=== PATIENT | male | born 1995 | race Caucasian/White ===

== ENCOUNTER 2017-12-04 05:10 | Emergency (ER) | payer BC, OTHER ==
[2017-12-04] MEDS ORDERED: HYDROmorphone 1 MG/ML 1 ML SYRINGE IM STA (06:57)
--- NOTE | 2017-12-04 07:00 | ED ---
Upper Extremity HPI - General Chief Complaint: Extremity Injury, Upper Stated Complaint: Surgical Site Swelling Time Seen by Provider: 12/04/17 05:18 Source: patient Mode of arrival: ambulatory Limitations: no limitations - History of Present Illness Initial Comments: This patient is 22-year-old man who arrives as a transfer from [facility]. The patient had gone there tonight in relation to left hand pain and swelling. The patient had a trigger finger release performed by Dr. Alexander Olivera a week. The ER physician at [facility] was concerned this patient may be developing a postoperative infection. When I interview the patient here he has not had fever or chills. He is not having any drainage from these incision. There has been no warmth or redness of the hand. His main complaint is of stiffness and a little bit of swelling. MD Complaint: Injury to:: left, hand Onset/Timin -: days(s) Other Extremity Injury: Hand: Left Other Injuries: none Handedness: right Place: home Improves With: none Worsens With: movement of extremity - Related Data Previous Rx's Medication Instructions Recorded Ibuprofen [Motrin] 600 mg PO Q6HR PRN #20 tab 12/30/15 Hydrocodone/Acetaminophen [[place] 1 each PO Q6HR PRN #8 tab 12/04/17 5-325] Allergies Allergy/AdvReac Type Severity Reaction Status Date / Time No Known Allergies Allergy Verified 12/04/17 05:15 Review of Systems ROS Statement: Those systems with pertinent positive or pertinent negative responses have been documented in the HPI. ROS Other: All systems not noted in ROS Statement are negative. Constitutional: Denies: fever, chills Respiratory: Denies: cough, dyspnea Cardiovascular: Denies: chest pain, palpitations Skin: Denies: rash, lesions Neurological: Denies: weakness, numbness, paresthesias Past Medical History Past Medical History: No Reported History History of Any Multi-Drug Resistant Organisms: None Reported Past Surgical History: Orthopedic Surgery Past Psychological History: No Psychological Hx Reported Smoking Status: Never smoker Past Alcohol Use History: Rare Past Drug Use History: None Reported General Exam Limitations: no limitations General appearance: alert, in no apparent distress Respiratory exam: Present: normal lung sounds bilaterally. Absent: respiratory distress, wheezes, rales, rhonchi, stridor Cardiovascular Exam: Present: regular rate, normal rhythm, normal heart sounds. Absent: systolic murmur, diastolic murmur, rubs, gallop Extremities exam: Present: normal capillary refill. Absent: tenderness Left Elbow exam: Present: normal inspection, full ROM. Absent: tenderness Forearm Wrist exam: Present: normal inspection, full ROM. Absent: tenderness Hand Wrist exam: Present: tenderness, swelling, other (The patient's surgical incision is clean dry and intact. There is no abnormal erythema or warmth. The patient does have a mild amount of swelling to the involved finger, and there is stiffness as well, he does resist range of motion exam.). Absent: full ROM, abrasion, laceration, ecchymosis, deformity, crepitus, dislocation, erythema, amputation, nail avulsion, subungual hematoma Course Vital Signs 12/04/17 12/04/17 05:14 07:17 Temperature 97.6 F 98.0 F Pulse Rate 87 80 Respiratory 18 19 Rate Blood Pressure 131/79 123/87 O2 Sat by Pulse 100 99 Oximetry Medical Decision Making - Medical Decision Making Patient's 22-year-old man transferred here from [facility] with concern about postoperative infection. When I have examined the patient there does not appear to be infection. I discussed case with Dr. Schmitz, who is covering tonight for Dr. Olivera. I inquired as to whether one of the physicians from the group would become going through the hospital and could see the patient here. He informed me that there is not case this morning, and that they would prefer that the patient follow in clinic first thing. Dr. Schmitz that the patient's contact information and was speaking with one of the nurse practitioners for the group to arrange follow-up in the clinic. I did provide a dose of analgesia and the patient stated that the pain was minimal. I also provided and ulnar gutter splint to protect the digit, at the request of the orthopedists. Discussed with the patient that he needs to return here if there is any difficulty with the follow-up plan Disposition Clinical Impression: Post-operative pain Disposition: HOME SELF-CARE Condition: Fair Instructions: Arthralgia (ED) Prescriptions: Hydrocodone/Acetaminophen [[place] 5-325] 1 each PO Q6HR PRN #8 tab PRN Reason: Pain Is patient prescribed a controlled substance at d/c from ED?: No Referrals: Tod Murrieta DO [Primary Care Provider] - 1-2 days Alexander Olivera DO [Doctor of Osteopathic Medicine] - 1-2 days
[2017-12-04 07:19] VITALS: BP 123/87; PULSE 80; RESP 19; TEMP 98
== END 2017-12-04 07:17 | disposition home or self-care (01) ==
LOC: EC 05:10
DX: G89.18 Other acute postprocedural pain (principal); M79.642 Pain in left hand; Z98.890 Other specified postprocedural states
CPT/HCPCS: 99283; 29125; 96372; J1170; 29515

== ENCOUNTER → 2017-12-16 | Outpatient (CLI) | payer BC | END | disposition home or self-care (01) | LOC: LABWHC1 12:17 | PROVIDERS: ATTEND Orthopaedic Surgery Hand Surgery | DX: T81.4XXA Infection following a procedure, initial encounter (principal); L08.9 Local infection of the skin and subcutaneous tissue, unspecified; M79.641 Pain in right hand; Z98.890 Other specified postprocedural states | CPT/HCPCS: 87070; 87205 ==

== ENCOUNTER → 2019-06-09 | Outpatient (CLI) | payer BC ==
[2019-06-09 15:03] LABS: Basophils % (A) 0 %; Eosinophils # (A) 0.1 k/uL (0-0.7); Eosinophils % (A) 1 %; HCT 40.6 % (39.0-53.0); HGB 13.4 gm/dL (13.0-17.5); Lymphocytes # (A) 1.8 k/uL (1.0-4.8); Lymphocytes % (A) 17 %; MCH 28.8 pg (25.0-35.0); MCV 87.3 fL (80.0-100.0); Mean Platelet Volume 7.6; Monocytes # (A) 0.8 k/uL (0-1.0); Monocytes % (A) 8 %; Neutrophils % (A) 73 %; Platelet Count 204 k/uL (150-450); RBC 4.65 m/uL (4.30-5.90); RDW 12.7 % (11.5-15.5); WBC 10.9 k/uL (3.8-10.6)
[2019-06-09 15:59] LABS: Erythrocyte Sedimentation Rate 4 mm/hr (0-15)
== END ==
LOC: LABWHC1 14:11
PROVIDERS: ATTEND Orthopaedic Surgery
DX: M25.561 Pain in right knee (principal)
CPT/HCPCS: 36415; 85025; 85652; 86140; 87070; 87077; 87186; 87205

== ENCOUNTER 2019-06-10 11:20 | Inpatient (IN) | payer BC ==
[2019-06-10] MEDS ORDERED: ACETAMINOPHEN TAB 325 MG TAB PO PRN (16:50)
[2019-06-10] MEDS ORDERED: VANCOMYCIN IV PER PHARMACY 1 EACH MISC MISCELLANE PRN (16:53)
--- NOTE | 2019-06-10 17:29 | P.HPOR ---
History of Present Illness H&P Date: 06/10/19 Chief Complaint: Right knee septic prepatellar bursitis Patient is a 23-year-old male who was evaluated in the outpatient setting on 06/09/2019 with regards to right knee pain and swelling by Dr. Fam. It was determined at that time he had a prepatellar bursitis, aspiration was done and labs were sent. We did receive those lab results today which showed an elevated CRP of 3.9 and also the Gram stain showing gram-positive cocci. It was determined that this was a septic prepatellar bursitis and would need surgical intervention. Dr. Fam will be out of town over the next week, Dr. Blake will be taking over care of the patient at that time. With his physical exam findings and lab results, we decided to admit the patient to the hospital for IV antibiotics, evaluation by infectious disease and a planned surgical intervention for 06/11/2019. I was able to discuss the risk and benefits of the procedure with the patient today in the office with his mom, they are in good understanding would like to proceed. We will be proceeding with an incision and drainage with irrigation and debridement of the right septic prepatellar bursitis. Consent forms will be obtained prior to surgery. Anticipate the patient will be in the hospital through the weekend until cultures are determined and antibiotic choices are made. Review of Systems Constitutional: Reports as per HPI Past Medical History Past Medical History: No Reported History History of Any Multi-Drug Resistant Organisms: None Reported Past Surgical History: Orthopedic Surgery Smoking Status: Never smoker Medications and Allergies Home Medications Medication Instructions Recorded Confirmed Type Ibuprofen [Motrin] 600 mg PO Q6HR PRN #20 tab 12/30/15 Rx Hydrocodone/Acetaminophen [[place] 1 each PO Q6HR PRN #8 tab 12/04/17 Rx 5-325] Allergies Allergy/AdvReac Type Severity Reaction Status Date / Time No Known Allergies Allergy Verified 12/04/17 05:15 Physical Examination Right lower extremity: There are no obvious open lesions or sores present, there is a small scab noted over the prepatellar bursal region. There is obvious erythema surrounding the area. There is obvious fluctuance and tenderness with exam Patient's range of motion, he lacks about 10 of full extension, he flexes to about 115 before discomfort. No obvious effusion present around the knee. Logroll maneuver of the hip reproduces no pain. Plantar flexion, dorsiflexion, EHL, FHL are intact. His calf is soft, no tenderness with palpation. Sensory exam to light touch throughout the extremity is intact, dorsalis pedis pulses 2+. Assessment and Plan Assessment: Right knee septic prepatellar bursitis Plan: Our plan is to proceed with a incision and drainage with irrigation and debridement of the right prepatellar bursa on 06/11/2019. Infectious disease consult has been placed to tile mechanic helper with antibiotic choice He was started on IV vancomycin, we'll continue this at this time Nothing by mouth after midnight Further recommendations to follow
[2019-06-10] MEDS: HYDROcodone/APAP 5-325MG 1 EACH TAB PO PRN (17:51)
[2019-06-10] MEDS ORDERED: VANCOMYCIN 1,250 MG in SODIUM CHLORIDE 0.9% 250 ML IVPB ONE (18:00)
[2019-06-10 18:15] LABS: Basophils % (A) 0 %; Eosinophils # (A) 0.1 k/uL (0-0.7); Eosinophils % (A) 1 %; HCT 38.1 % (39.0-53.0); HGB 12.7 gm/dL (13.0-17.5); Lymphocytes # (A) 1.9 k/uL (1.0-4.8); Lymphocytes % (A) 19 %; MCHC 33.2 g/dL (31.0-37.0); MCV 87.2 fL (80.0-100.0); Mean Platelet Volume 7.9; Monocytes # (A) 0.8 k/uL (0-1.0); Monocytes % (A) 8 %; Neutrophils % (A) 70 %; Platelet Count 172 k/uL (150-450); RBC 4.37 m/uL (4.30-5.90); RDW 12.6 % (11.5-15.5)
[2019-06-10 18:31] LABS: ALT 19 U/L (4-49); AST 30 U/L (17-59); African American GFR (CKD) >90 (>60 ml/min/1.73 sqM); Albumin 4.2 g/dL (3.5-5.0); Alkaline Phosphatase 48 U/L (38-126); Anion Gap 7 mmol/L; Blood Urea Nitrogen 13 mg/dL (9-20); Calcium 8.9 mg/dL (8.4-10.2); Carbon Dioxide 30 mmol/L (22-30); Chloride 100 mmol/L (98-107); Glucose 87 mg/dL (74-99); Non-African American GFR(CKD) >90 (>60 ml/min/1.73 sqM); Sodium 137 mmol/L (137-145); Total Bilirubin 0.6 mg/dL (0.2-1.3); Total Protein 6.8 g/dL (6.3-8.2)
[2019-06-10] MEDS: HYDROmorphone 0.5 MG/0.5 ML SYRINGE IVP PRN (20:19)
[2019-06-11] MEDS: HYDROcodone/APAP 5-325MG 1 EACH TAB PO PRN (00:45)
[2019-06-11] MEDS: VANCOMYCIN 1,500 MG in SODIUM CHLORIDE 0.9% 250 ML IVPB SCH ×3 (02:18→14:41)
[2019-06-11] MEDS: HYDROmorphone 0.5 MG/0.5 ML SYRINGE IVP PRN ×3 (02:19→14:41)
[2019-06-11] MEDS ORDERED: IV FLUID CONTINUATION 1,000 ML IV ONE (11:00)
[2019-06-11] MEDS ORDERED: fentaNYL (PF) 50 MCG/ML 2 ML AMP ONE (11:26)
[2019-06-11] MEDS ORDERED: HYDROmorphone (PF) 1 MG/ML ONE (11:26)
[2019-06-11] MEDS ORDERED: MIDAZOLAM 2 MG/2 ML VIAL ONE (11:26)
[2019-06-11] MEDS ORDERED: PROPOFOL 10 MG/ML 20 ML VIAL IV ONE (11:26)
[2019-06-11] MEDS ORDERED: LACTATED RINGERS 1,000 ML IV ONE (12:02)
[2019-06-11] MEDS ORDERED: BUPIVACAINE (PF) 0.5% 30 ML VIAL SQ ONE ×2 (12:12)
--- NOTE | 2019-06-11 12:25 | P.OP ---
Date of Procedure: 06/11/19 Preoperative Diagnosis: Right knee septic prepatellar bursitis Postoperative Diagnosis: Same Procedure(s) Performed: Right knee bursectomy with irrigation Anesthesia: MELISSA local Surgeon: Boni Blake Fitness Sales Consultant #1: Milton Silva Estimated Blood Loss (ml): 20 Pathology: none sent Condition: stable Disposition: PACU Indications for Procedure: 23-year-old patient seen with a right knee septic prepatellar bursitis. Recommend incision with bursectomy and irrigation. Patient was agreeable and consent was obtained. Operative Findings: See description of procedure Description of Procedure: Patient was taken to the operative suite. Patient underwent a generalized site by the primary a seizure. A well-padded tourniquet placed proximal right thigh. Right lower extremity was prepped and draped in the normal sterile fashion. The extremity was elevated and tourniquet insufflated to 300. A standard anterior incision made sharply through the skin. I dissected down to the bursa. It was significantly irritated and inflamed. A small sakshi was made in the bursa and cultures were obtained. With the assistance of a sakshi camacho and maria eugenia carefully performed a bursectomy removing the entire infected swollen bursa. We explored the wound and noted no residual abnormal looking tissue. We now irrigated the wound out copiously. I now repaired the subcutaneous soft tissues with 2-0 Vicryl in layers taking it down to the anterior aspect of the knee. I repaired the skin with nylon suture. We now infiltrated the subcu soft tissues with half percent plain Marcaine. Sterile dressings were applied. The tourniquet was released with immediate capillary refill noted. We applied sterile webril and Lasha bandage. The patient was awakened, transferred to a bed in the recovery stable condition. Sakshi ONEILL assisted procedure.
[2019-06-11] MEDS: HYDROmorphone 1 MG/ML 1 ML SYRINGE IVP ONE ×2 (12:50→12:55)
[2019-06-11] MEDS: HYDROcodone/APAP 7.5-325MG 1 EACH TAB PO PRN ×3 (13:35→23:29)
[2019-06-11] MEDS ORDERED: IBUPROFEN 800 MG TAB PO PRN (16:38)
[2019-06-11] MEDS: HYDROmorphone 1 MG/ML 1 ML SYRINGE IVP PRN (21:38)
[2019-06-11] MEDS ORDERED: VANCOMYCIN 1,500 MG in SODIUM CHLORIDE 0.9% 250 ML IVPB SCH (23:00)
--- NOTE | 2019-06-12 00:23 | P.CONS ---
History of Present Illness - Reason for Consult Consult date: 06/11/19 right knee septic prepatellar bursitis Requesting physician: Boni Blake - Chief Complaint right knee pain and swelling x few days - History of Present Illness Patient is a 23-year-old male who presented to orthopedic in the outpatient setting on June 08 with a chief complaints of right knee pain and swelling that apparently has been going on for a few days before he presented to the hospital patient had denies any history of trauma to the right knee patient was evaluated in the outpatient setting and he did have a aspirate of the right knee performed which did grew MSSA patient subsequently has been admitted directly to the hospital for right knee bursectomy with irrigation with a diagnosis of right knee septic prepatellar bursitis which has been performed this morning patient was started on vancomycin infectious disease was consulted for further recommendation about antibiotic therapy patient describing pain to the right knee mostly onto the anterior knee area with throbbing almost 10 out of 10 when severe with associated swelling or redness no open wound or any drainage pain is currently controlled with the pain medication he is on for surgery Review of Systems Positive point has been mentioned HPI rest of the systems are negative Past Medical History Past Medical History: No Reported History History of Any Multi-Drug Resistant Organisms: None Reported Past Surgical History: Orthopedic Surgery Smoking Status: Never smoker - Past Family History Father History Unknown: Yes Family Medical History: No Reported History Medications and Allergies Home Medications Medication Instructions Recorded Confirmed Type Ibuprofen [Motrin] 600 mg PO Q6HR PRN #20 tab 12/30/15 Rx Hydrocodone/Acetaminophen [[place] 1 each PO Q6HR PRN #8 tab 12/04/17 Rx 5-325] Allergies Allergy/AdvReac Type Severity Reaction Status Date / Time No Known Allergies Allergy Verified 12/04/17 05:15 Physical Exam Vitals: Vital Signs Temp Pulse Pulse Resp BP BP Pulse Ox 06/11/19 13:04 87 16 127/83 100 06/11/19 12:49 81 16 112/57 100 06/11/19 12:34 68 16 113/58 99 06/11/19 12:19 97.7 F 80 16 118/62 98 06/11/19 07:54 98.1 F 94 16 126/60 98 06/11/19 00:41 98.7 F 77 15 109/51 98 03/13/20 19:00 99.0 F 73 16 112/61 100 06/10/19 17:30 99.3 F 80 17 116/73 99 Intake and Output 06/11/19 06/11/19 06/11/19 06:59 14:59 22:59 Intake Total 0 600 Output Total 20 Balance 0 580 Intake: IV 600 Oral 0 Output: Estimated Blood Loss 20 Other: # Voids 1 GENERAL DESCRIPTION: Young male lying in bed, no distress. No tachypnea or accessory muscle of respiration use. HEENT: Shows Pallor , no scleral icterus. Oral mucous membrane is dry. No phary ngeal erythema or thrush NECK: Trachea central, no thyromegaly. LUNGS: Unlabored breathing. Clear to auscultation anteriorly. No wheeze or crackle. HEART: S1, S2, regular rate and rhythm. No loud murmur ABDOMEN: Soft, no tenderness , guarding or rigidity, no organomegaly EXTREMITIES: Right knee is currently dressed up no obvious drainage on the dressing sKIN: No rash, no masses palpable. NEUROLOGICAL: The patient is awake, alert, oriented x3, mood and affect normal. Results CBC & Chem 7: 06/10/19 18:01 06/10/19 18:01 Labs: Abnormal Lab Results - Last 24 Hours (Table) 06/10/19 Range/Units 18:01 Hgb 12.7 L (13.0-17.5) gm/dL Hct 38.1 L (39.0-53.0) % Assessment and Plan Assessment: patient with right knee septic prepatellar bursitis in this patient outpatient culture has been positive for MSSA who has been admitted to the hospital and is status post right knee bursectomy and I&D with deep cultures (1) Septic prepatellar bursitis of right knee Current Visit: Yes Status: Acute Code(s): M71.161 - OTHER INFECTIVE BURSITIS, RIGHT KNEE SNOMED Code(s): 75447491 (2) MSSA (methicillin susceptible Staphylococcus aureus) Current Visit: Yes Status: Acute Code(s): A49.01 - METHICILLIN SUSCEP STAPH INFECTION, UNSP SITE SNOMED Code(s): 739827503 Plan: 1-discontinue the vancomycin 2-start with cefazolin 2 g every 8 hour 3-discharge antibiotic on the basis of clinical response and repeat cultures We will follow on clinical condition and cultures to further adjust medication if needed Thank you for this consultation will follow this patient along with you Time with Patient: Greater than 30
[2019-06-12] MEDS: HYDROmorphone 1 MG/ML 1 ML SYRINGE IVP PRN ×7 (01:33→22:43)
[2019-06-12] MEDS: HYDROcodone/APAP 7.5-325MG 1 EACH TAB PO PRN ×3 (05:52→18:04)
[2019-06-12] MEDS ORDERED: VANCOMYCIN TROUGH DUE 1 EACH MISC MISCELLANE ONE (06:00)
[2019-06-12 06:56] LABS: African American GFR (CKD) >90 (>60 ml/min/1.73 sqM); Non-African American GFR(CKD) >90 (>60 ml/min/1.73 sqM)
--- NOTE | 2019-06-12 15:00 | P.PN ---
Subjective Progress Note Date: 06/12/19 Principal diagnosis: status post incision and drainage with irrigation and debridement infected right prepatellar bursitis Patient was evaluated today at bedside, resting comfortably. He has had some increase in pain since the surgery yesterday. He has not been out of bed at t his time. Denies any fevers or chills at this time. Objective - Vital Signs Vital signs: Vital Signs Temp 98.3 F 06/12/19 07:37 Pulse 80 06/12/19 07:37 Resp 16 06/12/19 07:37 BP 103/55 06/12/19 07:37 Pulse Ox 99 06/12/19 07:37 Intake & Output 06/11/19 06/12/19 06/12/19 18:59 06:59 18:59 Intake Total 600 1730 50 Output Total 20 800 1000 Balance 580 930 -950 Intake: IV 600 Intake, IV Titration 50 50 Amount ceFAZolin 2 gm In Sodium 50 50 Chloride 0.9% 50 ml @ 100 mls/hr IVPB Q8HR [facility] Rx# :[id number] Oral 1680 Output: Urine 800 1000 Estimated Blood Loss 20 Other: Voiding Method Urinal # Voids 1 1 - Exam Right lower extremity: Postoperative bandages removed, stitches are in good position condition. There is no obvious drainage. The erythema and swelling is improved. Calf is soft, no tenderness with palpation. Distal neurovascular exam is intact. - Labs CBC & Chem 7: 06/10/19 18:01 06/12/19 05:46 Labs: Microbiology - Last 24 Hours (Table) 06/11/19 12:01 Gram Stain - Preliminary Knee - Right Wound Culture - Preliminary 06/11/19 12:01 Anaerobic Culture - Preliminary Knee - Right Assessment and Plan Assessment: Status post incision and drainage with irrigation and debridement right infected prepatellar bursitis Plan: Pain control, try to wean off IV pain medication, orals as needed Weight-bear as tolerated, advised patient to avoid deep flexion or any kneeling Daily dressing changes/ice and elevate Await final culture/sensitivity Infectious disease recommendations Plan for discharge in the next day or 2 Time with Patient: Less than 30
[2019-06-12] MEDS ORDERED: ONDANSETRON 4 MG/2 ML VIAL IVP PRN (17:36)
[2019-06-12 19:45] VITALS: RESP 16
[2019-06-13] MEDS: HYDROcodone/APAP 7.5-325MG 1 EACH TAB PO PRN ×2 (02:09→08:57)
[2019-06-13 08:23] LABS: Basophils % (A) 0 %; Eosinophils # (A) 0.1 k/uL (0-0.7); Eosinophils % (A) 1 %; HCT 42.9 % (39.0-53.0); HGB 13.9 gm/dL (13.0-17.5); Lymphocytes # (A) 1.3 k/uL (1.0-4.8); Lymphocytes % (A) 19 %; MCH 28.6 pg (25.0-35.0); MCHC 32.4 g/dL (31.0-37.0); MCV 88.3 fL (80.0-100.0); Mean Platelet Volume 8.2; Monocytes # (A) 0.5 k/uL (0-1.0); Monocytes % (A) 8 %; Neutrophils # (A) 4.7 k/uL (1.3-7.7); Neutrophils % (A) 70 %; Platelet Count 277 k/uL (150-450); RBC 4.86 m/uL (4.30-5.90); RDW 12.6 % (11.5-15.5); WBC 6.8 k/uL (3.8-10.6)
[2019-06-13 08:44] LABS: African American GFR (CKD) >90 (>60 ml/min/1.73 sqM); Anion Gap 6 mmol/L; Blood Urea Nitrogen 8 mg/dL (9-20); Calcium 9.4 mg/dL (8.4-10.2); Carbon Dioxide 31 mmol/L (22-30); Chloride 102 mmol/L (98-107); Glucose 89 mg/dL (74-99); Non-African American GFR(CKD) >90 (>60 ml/min/1.73 sqM); Sodium 139 mmol/L (137-145)
[2019-06-13 08:59] LABS: C Reactive Protein 48.9 mg/L (<10.0)
--- NOTE | 2019-06-13 09:19 | PN ---
PROGRESS NOTE DATE OF SERVICE: 06/12/2019 REASON FOR FOLLOWUP: Right knee septic prepatellar bursitis. INTERVAL HISTORY: The patient is currently afebrile, has been breathing comfortably. Patient denies having any chest pain or any cough: No nausea, no vomiting, no abdominal pain, or any worsening pain to the right knee area. PHYSICAL EXAMINATION: Blood pressure 113/51 with a pulse of 80, temperature 98.6, he is 93% we room air. General description is a young male, lying in bed in no distress. RESPIRATORY SYSTEM: Unlabored breathing, clear to auscultation anteriorly. HEART: S1, S2, regular rate and rhythm. ABDOMEN: Soft, no tenderness. The right knee is currently dressed. No obvious drainage on the dressing. LABS: Wound cultures are currently pending. DIAGNOSTIC IMPRESSION AND PLAN: Patient with right knee septic prepatellar bursitis, outpatient culture has been positive for MSSA. The patient is post I and D. The patient is currently covered with Cefazolin; to continue while waiting for the OR culture to finalize. Will check with transplant case manager if the patient has outpatient IV antibiotic coverage which in case antibiotic will be switched over to Rocephin 2 g daily for 2 weeks with close outpatient follow-up. MMODL / IJN: [id number] / MTDD
[2019-06-13 10:14] VITALS: BP 125/69; PULSE 68; TEMP 98.6
[2019-06-13 12:15] LABS: Erythrocyte Sedimentation Rate 19 mm/hr (0-15)
--- NOTE | 2019-06-13 12:25 | P.PN ---
Subjective Progress Note Date: 06/13/19 Principal diagnosis: status post incision and drainage with irrigation and debridement infected right prepatellar bursitis Patient was evaluated today at bedside, resting comfortably. Pain is much better today. He has been ambulating with no difficulty. Objective - Vital Signs Vital signs: Vital Signs Temp 98.6 F 06/13/19 07:36 Pulse 68 06/13/19 07:36 Resp 16 06/13/19 07:36 BP 125/69 06/13/19 07:36 Pulse Ox 100 06/13/19 07:36 Intake & Output 06/12/19 06/13/19 06/13/19 18:59 06:59 18:59 Intake Total 50 50 Output Total 1000 Balance -950 50 Intake: Intake, IV Titration 50 50 Amount ceFAZolin 2 gm In Sodium 50 50 Chloride 0.9% 50 ml @ 100 mls/hr IVPB Q8HR [facility] Rx# :[id number] Output: Urine 1000 Other: Voiding Method Urinal # Voids 1 - Exam Right lower extremity: Incision is clean, dry and intact. There is no obvious drainage. The erythema and swelling is improved. Calf is soft, no tenderness with palpation. Distal neurovascular exam is intact. - Labs CBC & Chem 7: 06/13/19 07:14 06/13/19 07:14 Labs: Abnormal Lab Results - Last 24 Hours (Table) 06/13/19 06/13/19 Range/Units 07:14 07:14 ESR 19 H (0-15) mm/hr Carbon Dioxide 31 H (22-30) mmol/L BUN 8 L (9-20) mg/dL C-Reactive Protein 48.9 H (<10.0) mg/L Assessment and Plan Assessment: Status post incision and drainage with irrigation and debridement right infected prepatellar bursitis Plan: Pain control, oral medications needed Weight-bear as tolerated, advised patient to avoid deep flexion or any kneeling Daily dressing changes/ice and elevate Possible discharged home today Time with Patient: Less than 30
--- NOTE | 2019-06-13 12:53 | P.DS ---
Providers Date of admission: 06/11/19 12:22 Expected date of discharge: 06/13/19 Attending physician: Boni Blake Consults: 06/10/19 16:49 Consult Physician Routine Consulting Provider: Yesenia Paul Consult Reason/Comments: Right knee septic prepatellar bursitis Do you want consulting provider notified?: Yes Primary care physician: Stated None Hospital Course: Date of admission: 06/10/2019 Date of discharge: 06/13/2019 Admission diagnosis: Infected right prepatellar bursitis Discharge diagnosis: Status post incision and drainage with irrigation and debridement infected right prepatellar bursitis Attending physician: Dr. Blake Surgical procedures: Incision and drainage with irrigation and debridement infected right prepatellar bursitis Brief history: Patient is a 23-year-old male who was initially evaluated in the outpatient setting by Dr. Fam on 06/09/2019 with a likely infected right prepatellar bursitis. Initial lab tests were done, demonstrated a infection. Patient was admitted to the hospital on 06/10/2019 with plan for surgical intervention on 06/11/2019. Hospital course: Details of patient's surgery can be found in operative report. Patient tolerated the procedure well and was subsequently transported to orthopedic floor. Patient's orthopeidc and medical care was provided daily. Patient had daily laboratory tests performed for evaluation of overall blood counts. Patient was noted to have a relatively uneventful postoperative course. Patient reported satisfactory pain control with oral pain medications by postoperative day 0. Patient showed satisfactory progress with physical therapy. Patient moved steadily through the program and had no difficulty meeting the goals by postoperative day 2. Given patient's otherwise satisfactory course and having met physical therapy goals, plan is to discharge patient home on postoperative day 2. Discharge condition/disposition: Patient will be discharged home in stable condition. Discharge medications: Instructions are given on resumption of patient's normal daily medications per primary care recommendation, in addition patient will be prescribed [place] 5 mg/325 mg, Cefazolin Discharge instructions: 1. Wound care and infection precautions, keep incision dry and covered while showering, no lotions, creams, moisturizers. No soaking, tubs, pools, hottubs. Do not scrub over the incision. 2. Weight-bear as tolerated with walker / cane until follow-up. 3. Ice and elevate when necessary. Do not exceed 20 minutes per hour with ice pack. 4. Follow up in office at 2 weeks postop with Spenser Silva PA-C 5. Follow up with your primary care doctor 7-10 days after discharge. 6. Contact [facility] with any questions, . Procedures: Incision and drainage with irrigation and debridement infected right prepatellar bursitis Patient Condition at Discharge: Good Plan - Discharge Summary Discharge Rx Participant: No New Discharge Prescriptions: New Hydrocodone/Acetaminophen [[place] 5-325] 1 each PO Q6HR PRN #20 tab PRN Reason: Pain No Action Ibuprofen [Motrin] 600 mg PO Q6HR PRN #20 tab PRN Reason: Pain Hydrocodone/Acetaminophen [[place] 5-325] 1 each PO Q6HR PRN #8 tab PRN Reason: Pain Discharge Medication List Ibuprofen [Motrin] 600 mg PO Q6HR PRN #20 tab 12/30/15 [Rx] Hydrocodone/Acetaminophen [[place] 5-325] 1 each PO Q6HR PRN #8 tab 12/04/17 [Rx] Hydrocodone/Acetaminophen [[place] 5-325] 1 each PO Q6HR PRN #20 tab 06/13/19 [Rx] Follow up Appointment(s)/Referral(s): [facility]Infusion [NON-STAFF] - Milton Silva, PAC [PHYSICIAN RECORD KEEPER] - 2 Weeks Activity/Diet/Wound Care/Special Instructions: Orthopedic discharge instructions: 1. Daily dressing changes 2. Weight-bear as tolerated, avoid excess flexion and kneeling on the knee 3. Keep incision dry and covered while showering 4. Plan for follow-up at [facility] in 2 weeks Discharge Disposition: HOME SELF-CARE
--- NOTE | 2019-06-13 16:04 | P.PN ---
Progress Note - Text Progress Note Date: 06/13/19 REASON FOR FOLLOWUP: Right knee septic prepatellar bursitis MSSA INTERVAL HISTORY: The patient remains to be afebrile afebrile, has been breathing comfortably. Patient denies having any chest pain or any cough: No nausea, no vomiting, no abdominal pain, or any worsening pain to the right knee area. PHYSICAL EXAMINATION: Blood pressure 120/50 with a pulse of 70, temperature 98.6, he is 93% we room air. General description is a young male, lying in bed in no distress. RESPIRATORY SYSTEM: Unlabored breathing, clear to auscultation anteriorly. HEART: S1, S2, regular rate and rhythm. ABDOMEN: Soft, no tenderness. The right knee incision is intact did have some redness no foul-smelling kady inage. LABS: Wound cultures presumptive staph aureus. Was cultured for MSSA DIAGNOSTIC IMPRESSION AND PLAN: Patient with right knee septic prepatellar bursitis, outpatient culture has been positive for MSSA. The patient is post I and D. patient antibiotics will be Switched over to Rocephin 2 g daily for 2 weeks midline and close outpatient follow-up
== END 2019-06-13 15:53 | disposition home or self-care (01) | DRG 502 ==
LOC: EDSTATUS 11:20 → 4SSUR 16:53 → EDSTATUS 06-11 11:20 → OBSVTOIN 06-11 12:22
PROVIDERS: ADMIT Orthopaedic Surgery; ATTEND Orthopaedic Surgery
PROC: 0MBN0ZZ Excision of Right Knee Bursa and Ligament, Open Approach (ICD-10-PCS; principal; 2019-06-11 11:20)
DX: M71.161 Other infective bursitis, right knee (principal); B95.61 Methicillin susceptible Staphylococcus aureus infection as the cause of diseases classified elsewhere
CPT/HCPCS: 36410; 36415; 76937; 80048; 80053; 80202; 82565; 85025; 85652; 86140; 87070; 87075; 87077; 87186; 87205

== ENCOUNTER → 2020-04-16 | Outpatient (CLI) | payer BC | END | disposition home or self-care (01) | LOC: RADMRIMAIN 20:02 | PROVIDERS: ATTEND Orthopaedic Surgery | DX: Z53.9 Procedure and treatment not carried out, unspecified reason (principal) ==

== ENCOUNTER → 2020-04-18 | Outpatient (CLI) | payer BC ==
--- NOTE | 2020-04-19 02:12 | MR ---
EXAMINATION TYPE: MR knee RT wo con DATE OF EXAM: 04/18/2020 COMPARISON: 04/02/2012 HISTORY: Right knee pain due to basketball injury in 2011 Multiplanar multiecho imaging of the right knee was performed without contrast. The anterior and posterior cruciate ligaments are intact. Patella is intact. The collateral ligaments are intact. There is some degenerative thinning of the medial meniscus. The lateral meniscus appears normal for age. There is focal abnormal 1.5 cm area of increased signal in the anterior aspect of the medial tibial c ondyle. IMPRESSION: Edema in the anterior aspect of the medial tibial condyle consistent with a bone bruise. This appears new compared to old exam. Thinning of the medial meniscus consistent with degenerative phenomenon or surgery that is similar to old exam.
== END | disposition home or self-care (01) ==
LOC: RADMRIMAIN 18:38
PROVIDERS: ATTEND Orthopaedic Surgery
DX: M25.861 Other specified joint disorders, right knee (principal)

== ENCOUNTER → 2022-03-27 | Outpatient (CLI) | payer BC ==
[2022-03-27 22:33] LABS: Basophils # (A) 0.04 X 10*3/uL (0.00-0.10); Basophils % (A) 0.5 %; Eosinophils # (A) 0.22 X 10*3/uL (0.04-0.35); Eosinophils % (A) 2.7 %; HCT 41.1 % (39.6-50.0); HGB 13.5 g/dL (13.0-17.0); Immature Grans, Automated 0.2 %; Lymphocytes # (A) 2.56 X 10*3/uL (0.90-5.00); Lymphocytes % (A) 30.9 %; MCH 29.3 pg (27.0-32.0); MCHC 32.8 g/dL (32.0-37.0); MCV 89.2 fL (80.0-97.0); Monocytes # (A) 0.78 X 10*3/uL (0.20-1.00); Monocytes % (A) 9.4 %; NRBC Per 100 WBC 0 /100 WBCS (0.0-0.0); Neutrophils # (A) 4.67 X 10*3/uL (1.80-7.70); Neutrophils % (A) 56.3 %; Platelet Count 232 X 10*3/uL (140-440); RBC 4.61 X 10*6/uL (4.40-5.60); RDW 13.4 % (11.5-14.5); WBC 8.29 X 10*3/uL (4.50-10.00)
[2022-03-28 00:09] LABS: African American GFR (CKD) 136.1 (60.0-200.0); Anion Gap 6.6 mmol/L (10.00-18.00); BUN/Creat Ratio 14.44 Ratio (12.00-20.00); Calcium 9.6 mg/dL (8.7-10.3); Carbon Dioxide 29.4 mmol/L (20.0-27.5); Non-African American GFR(CKD) 117.5 (60.0-200.0); Potassium 4.9 mmol/L (3.5-5.5)
== END | disposition home or self-care (01) ==
LOC: LABPAT 15:39
PROVIDERS: ATTEND Orthopaedic Surgery
DX: Z01.812 Encounter for preprocedural laboratory examination (principal); M23.91 Unspecified internal derangement of right knee
CPT/HCPCS: 80048; 85025

== ENCOUNTER 2022-04-04 07:22 | Day surgery (SDC) | payer BC ==
[2022-04-01 13:21] VITALS: BMI 20.7
--- NOTE | 2022-04-03 11:13 | P.HPOR ---
History of Present Illness H&P Date: 04/03/22 Chief Complaint: Right knee pain The patient's a 26-year-old male who presents with progressive right knee pain for the past year that is worsening. He notes buckling and instability. He has daily pain. He tried medications in addition to an injection with partial temporary relief. He notes he is limited because of pain. Review of Systems As per HPI Past Medical History Past Medical History: No Reported History History of Any Multi-Drug Resistant Organisms: None Reported Past Surgical History: Orthopedic Surgery Additional Past Surgical History / Comment(s): Arthroscopic right knee surgery X3. Past Anesthesia/Blood Transfusion Reactions: No Reported Reaction Past Psychological History: No Psychological Hx Reported Smoking Status: Never smoker Past Alcohol Use History: Rare Past Drug Use History: Marijuana Additional Drug Use History / Comment(s): Hx daily Marijuana use, none in the last month. - Past Family History Father History Unknown: Yes Family Medical History: No Reported History Medications and Allergies Home Medications Medication Instructions Recorded Confirmed Type Celebrex (Unknown Dose) 1 tab PO BID PRN 04/01/22 04/01/22 History Allergies Allergy/AdvReac Type Severity Reaction Status Date / Time No Known Allergies Allergy Verified 04/01/22 13:13 Physical Examination - Knee right Effusion grade: trace Pain: with flexion ROM: extension: -5 degrees ROM: flexion: 140 degrees Strength: extension: 5/5 Strength: flexion: 5/5 Meniscal tests: medial meniscal tests: positive, medial joint line pain: positive Results The patient is a well-developed well-nourished male a proximally 6 foot 4, 165 pounds of mesomorphic habits. HEENT exam is nonfocal, neck is supple. He has painless passive motion of the right hip. Straight leg raise is negative. His distal neurovascular appears intact in the right lower extremity. - Diagnostic results Knee MRI: image reviewed (MRI of the right knee shows medial femoral condyle edema along with increased signal involving the posterior horn of the medial meniscus) Assessment and Plan Assessment: Right knee internal derangement/recurrent medial meniscal tear Plan: I talked with the patient regarding his condition along with treatment options. At this point is having persistent pain and mechanical symptoms despite conservative measures. After thorough discussion he opted to proceed with surgery. We'll proceed arthroscopic evaluation with probable partial medial meniscectomy. We will likely perform this as an outpatient procedure. Risks and benefits were discussed at length in layman's terms.
[2022-04-04] MEDS ORDERED: DEXAMETHASONE SOD PHOSPHATE 4 MG/ML 1 ML VIAL IV ONE (07:38)
[2022-04-04] MEDS ORDERED: MIDAZOLAM 2 MG/2 ML VIAL IV PRN (07:38)
[2022-04-04] MEDS ORDERED: HYDROmorphone 0.5 MG/0.5 ML SYRINGE IVP PRN (07:38)
[2022-04-04] MEDS ORDERED: LIDOCAINE 1% (10MG/ML) FOR IV START INTRADERMA PRN (07:38)
[2022-04-04] MEDS ORDERED: LACTATED RINGERS 1,000 ML IV SCH (07:38)
[2022-04-04] MEDS ORDERED: ONDANSETRON 4 MG/2 ML VIAL IVP ONE (07:38)
[2022-04-04] MEDS ORDERED: MIDAZOLAM 2 MG/2 ML VIAL ONE (09:33)
[2022-04-04] MEDS ORDERED: PROPOFOL 10 MG/ML 20 ML VIAL IV ONE (09:33)
[2022-04-04] MEDS ORDERED: KETOROLAC 15 MG/ML 1 ML VIAL ONE (09:33)
[2022-04-04] MEDS ORDERED: LIDOCAINE 2% INJ 20 MG/ML (2 ML VIAL) ONE (09:33)
[2022-04-04] MEDS ORDERED: LABETALOL 5 MG/ML VIAL MDV ONE (09:33)
[2022-04-04] MEDS ORDERED: fentaNYL (PF) 50 MCG/ML 2 ML AMP ONE (09:33)
[2022-04-04] MEDS ORDERED: KETAMINE 10 MG/ML 20 ML VIAL ONE (09:33)
[2022-04-04] MEDS ORDERED: EPINEPHrine (PF) 1 ML in SODIUM CHLORIDE 0.9% IRRIGATIO 3,000 ML IRRIGATION ONE ×4 (09:38)
--- NOTE | 2022-04-04 10:26 | P.OP ---
Date of Procedure: 04/04/22 Preoperative Diagnosis: Internal derangement right knee Postoperative Diagnosis: Right knee recurrent medial meniscal tear Procedure(s) Performed: Right knee arthroscopic partial medial meniscectomy Anesthesia: AMENAA Surgeon: Bruce Fam Estimated Blood Loss (ml): 10 Pathology: none sent Condition: stable Disposition: PACU Indications for Procedure: The patient's a 26-year-old male who presents with right knee pain and mechanical symptoms despite conservative measures. A discussion of the risks and benefits of operative intervention versus continued conservative measures was made with patient. He opted to proceed with surgery. Operative risks to include infection, neurovascular injury, development of blood clots, possible incomplete resolution of symptoms, possible worsening symptoms and need for subsequent procedures was discussed. Informed consent was obtained. Operative Findings: As below Description of Procedure: The patient was brought to the operating room, and after induction of general anesthesia examined the right knee. Collaterals were stable, Naty was negative, and posterior drawer was negative. The right lower extremity was prepped and draped in a normal fashion. A superior lateral portal was made through a 3 mm skin incision superior and lateral to the patella. This was used for outflow. A lateral portal was made through a 5 mm vertical skin incision lateral to the patella tendon above the joint line. Diagnostic arthroscopy was performed. On inspection of the medial compartment, a flap tear involving the posterior most aspect the medial meniscus was noted. Previous posterior partial medial meniscectomy was noted. This debrided back to stable base with straight baskets and a motorized shaver. Grade 2-3 chondral changes were noted diffusely involving the posterior aspect of the distal medial femoral condyle. There were no loose chondral fragments. On inspection of the notch, the anterior cruciate ligament appeared to be intact. On inspection of the lateral compartment, no significant cartilage or meniscal pathology was noted. On inspection of the patellofemoral articulation, there were minimal degenerative changes.. The gutters were clear debris. The knee was then thoroughly irrigated. The portals were closed with Steri-Strips. A sterile dressing was applied in addition to a compression stocking. The patient was awoken from general anesthesia and transferred to recovery room in good condition. Blood loss was estimated at 20 mL. No complications were incurred.
[2022-04-04 10:39] VITALS: TEMP 97.1
[2022-04-04] MEDS ORDERED: HYDROmorphone 0.5 MG/0.5 ML SYRINGE IVP ONE (10:48)
[2022-04-04 11:27] VITALS: BP 111/68; PULSE 68; RESP 15
== END 2022-04-04 11:49 | disposition home or self-care (01) ==
LOC: OR 07:22
PROVIDERS: ATTEND Orthopaedic Surgery
DX: S83.241A Other tear of medial meniscus, current injury, right knee, initial encounter (principal); F12.90 Cannabis use, unspecified, uncomplicated; Z79.899 Other long term (current) drug therapy; X58.XXXA Exposure to other specified factors, initial encounter
CPT/HCPCS: 29881; J2250; J1100; J0690; J2405; J0171; J3010; J1885; J2704; J1170; J2001